=== PATIENT | female | born 1930 | race Asian ===

== ENCOUNTER 2016-04-11 11:08 | Emergency (ER) | payer MEDICARE, OTHER ==
[~2016-04-11] VITALS: Wt 52.0 kg
[2016-04-11] MEDS ORDERED: CLOT30CR24 TOP (11:53)
[2016-04-11] MEDS ORDERED: CETI10CA PO (11:53)
[2016-04-11] MEDS ORDERED: FLUC150T17 PO (11:53)
--- NOTE | 2016-04-11 11:56 | ERD ---
ER Documentation Chief Complaint Date/Time DATE: 04/11/16 TIME: 11:55 Chief Complaint rash for the past 3 days. with no stridor noted. no HPI This 85-year-old female presents with a rash for the last 3 days which is itchy. It is primarily underneath her breasts. Denies fevers, vomiting, shortness of the chest pain. ROS All systems reviewed and are negative except as per history of present illness. Medications Home Meds Active Scripts Cetirizine Hcl* (Zyrtec*) 10 Mg Capsule, 10 MG PO DAILY, #15 TAB.CHEW Prov:JEFFRY JOHNSON MD 04/11/16 Fluconazole* (Diflucan*) 150 Mg Tablet, 150 MG PO ONCE, #1 TAB Prov:JEFFRY JOHNSON MD 04/11/16 Clotrimazole* (Clotrimazole* AF) 1% - 30 Gm Cream.gm., 1 APPLIC TOP BID for 10 Days, TUB Prov:JEFFRY JOHNSON MD 04/11/16 PMhx/Soc Medical and Surgical Hx: pt denies Medical Hx, pt denies Surgical Hx Physical Exam Vitals Vital Signs Date Time Temp Pulse Resp B/P Pulse Ox O2 Delivery O2 Flow Rate FiO2 04/11/16 11:11 97.8 100 20 153/78 98 Physical Exam Const: [] Alert, not ill-appearing per Head: Atraumatic Eyes: Normal Conjunctiva ENT: Normal External Ears, Nose and Mouth. Neck: Full range of motion..~ No meningismus. Resp: Clear to auscultation bilaterally Cardio: Regular rate and rhythm, no murmurs Abd: Soft, non tender, non distended. Normal bowel sounds Skin: No petechiae there is a large rash underneath bilateral breasts with satellite lesions. There is no warmth, streaking or vesicles. Back: No midline or flank tenderness Ext: No cyanosis, or edema Neur: Awake and alert Psych: Normal Mood and Affect Procedures/MDM Patient presents with signs and symptoms of tinea corporis or intertrigo. Patient was treated with Diflucan and Lotrimin and Zyrtec. There is no evidence of cellulitis or life-threatening reactions to any sepsis. Patient is advised to follow-up with primary care doctor this week or for new or worsening symptoms Departure Diagnosis: Primary Impression: Tinea corporis Additional Impression: Rash Condition: Stable Patient Instructions: Tinea Corporis Additional Instructions: Recheck for new or worsening symptoms over the primary care doctor. JEFFRY JOHNSON MD Apr 11, 2016 11:56
== END 2016-04-11 12:05 | disposition home or self-care (01) ==
LOC: FTE 11:08
DX: B35.4 Tinea corporis (principal); I10 Essential (primary) hypertension
CPT/HCPCS: 99283